=== PATIENT | female | born 1960 | race Caucasian/White ===

== ENCOUNTER 2020-05-14 08:40 | Outpatient (CLI) | payer OTHER, SELFPAY ==
--- NOTE | 2020-05-14 08:44 | CT_ITS ---
WS: [id number] CT NECK TECHNIQUE: Contrast-enhanced CT of the neck with coronal and sagittal reformatted images. CLINICAL INFORMATION: RIGHT CERVICAL LYMPHADENOPATHY COMPARISON: None. DLP: 622.[address] scans at [facility] use at least one of these dose optimization techniques: automat ed exposure control; mA and/or kV adjustment per patient size (includes targeted exams where dose is matched to clinical indication); or iterative reconstruction. FINDINGS: Parotid glands are normal. Normal submandibular glands. Normal parapharyngeal fat. Tongue base is nor mal in appearance. No evidence of supraglottic or glottic mass. Normal vallecula and piriform sinuses . Normal thyroid gland. In the area of concern, right lower neck, normal underlying sternocleidomastoid. No evidence of under lying neck mass or fluid collection. Lung apices are well aerated. No cervical lymphadenopathy. CT/CT neck w con* [id number] IMPRESSION: 1. No pathologic mass or lesion in the underlying neck soft tissues right lowe r neck in the area of concern. Normal underlying sternocleidomastoid. 2. No evidence of supraglottic or glottic mass. 3. No cervical lymphadenopathy.
[2020-05-14 09:31] LABS: Blood Urea Nitrogen 12 mg/dL (8-23); Glomerular Filtration Rate 85.4 mL/min (90-130)
[2020-05-14] MEDS: iodixanol 320 mg/mL 100mL Btl IV ×2 (09:40→09:56)
== END 2020-05-14 08:41 | disposition home or self-care (01) ==
PROVIDERS: Family Provider Family Medicine; PCP Family Medicine; Visit Provider Family Medicine
DX: R59.1 Generalized enlarged lymph nodes (principal)
CPT/HCPCS: 36415; 70491; 82565; 84520

== ENCOUNTER → 2020-07-23 15:41 | Outpatient (BNVA) | payer OTHER, SELFPAY | PROVIDERS: Family Provider Family Medicine; PCP Family Medicine; Visit Provider Family Medicine | DX: Z11.59 Encounter for screening for other viral diseases (principal) | CPT/HCPCS: 87635 ==

== ENCOUNTER 2021-08-26 12:02 | Outpatient (CLI) | payer OTHER, SELFPAY ==
--- NOTE | 2021-08-26 12:10 | MM_ITS ---
WS: [id number] BILATERAL SCREENING DIGITAL MAMMOGRAM WITH CAD HISTORY: SCREENING COMPARISON: 08/31/2019 and 05/03/2018 Bilateral CC and MLO views submitted. Computer aided detection analyzed. Breast composition: There are scattered areas of fibroglandular density. No suspicious masses, microc alcifications or architectural distortion. Benign calcification LEFT breast. MM/[place] [id number] IMPRESSION: BI-RADS: 2-Benign FOLLOW UP: 1 Year Follow-up
== END 2021-08-26 12:03 | disposition home or self-care (01) ==
PROVIDERS: PCP Family Medicine; Visit Provider Family Medicine
DX: Z12.31 Encounter for screening mammogram for malignant neoplasm of breast (principal)
CPT/HCPCS: 77067

== ENCOUNTER 2021-11-26 01:45 | Emergency (ER) | payer OTHER, SELFPAY ==
[2021-11-26 01:50] VITALS: BP 158/74; PULSE 83; RESP 18; TEMP 36.9; O2SAT 97; BMI 36.1
--- NOTE | 2021-11-26 01:54 | XRR_ITS ---
PROCEDURE INFORMATION: Exam: XR Left Wrist Exam date and time: 11/26/2021 1:54 AM Age: 60 years old Clinical indication: Injury or trauma; Fall; Blunt trauma (contusions or hematomas); Wrist; Left; Additional info: Injury, fall TECHNIQUE: Imaging protocol: XR Left wrist. Views: 3 or more views. COMPARISON: No relevant prior studies available. FINDINGS: Bones/joints: No fracture or dislocation is seen. Soft tissues: Soft tissue swelling displaces the pronator quadratus fat pad. XR/XR wrist LT min 3V* [id number] IMPRESSION: No fracture or dislocation. Displacement of the pronator quadratus fat pad is noted. Consider CT or MRI of the left wrist.
--- NOTE | 2021-11-26 01:54 | XRR_ITS ---
PROCEDURE INFORMATION: Exam: XR Right Wrist Exam date and time: 11/26/2021 1:54 AM Age: 60 years old Clinical indication: Injury or trauma; Fall; Blunt trauma (contusions or hematomas); Wrist; Right; Additional info: Injury, fall TECHNIQUE: Imaging protocol: XR Right wrist. Views: 3 or more views. COMPARISON: No relevant prior studies available. FINDINGS: Mild degenerative changes are present at the radiocarpal and distal radioulnar joints. No fracture or dislocation is visualized XR/XR wrist RT min 3V* [id number] IMPRESSION: No fracture or dislocation.
--- NOTE | 2021-11-26 01:54 | CTR_ITS ---
PROCEDURE INFORMATION: Exam: CT Head Without Contrast Exam date and time: 11/26/2021 1:54 AM Age: 60 years old Clinical indication: Injury or trauma; Fall; Blunt trauma (contusions or hematomas) and laceration; Without loss of consciousness; Without residual foreign body; Forehead; Additional info: Head injury TECHNIQUE: Imaging protocol: Computed tomography of the head without contrast. Radiation optimization: All CT scans at this facility use at least one of these dose optimization techniques: automated exposure control; mA and/or kV adjustment per patient size (includes targeted exams where dose is matched to clinical indication); or iterative reconstruction. COMPARISON: CT neck w con* [id number] 05/14/2020 9:46 AM RADIATION DOSE METRICS: Total DLP (mGy-cm): 807.68 FINDINGS: Brain: Normal. No hemorrhage. Unremarkable white matter. No mass effect. Cerebral ventricles: No ventriculomegaly. Paranasal sinuses: Visualized sinuses are unremarkable. No fluid levels. Mastoid air cells: Visualized mastoid air cells are well aerated. Bones/joints: Unremarkable. No acute fracture. Soft tissues: Mild soft tissue swelling is present in the left periorbital and forehead regions. CT/CT head wo con* [id number] IMPRESSION: No acute intracranial abnormality.
--- NOTE | 2021-11-26 01:55 | ED_ITS ---
HPI - Head Injury General: Chief complaint: Fall Stated complaint: Fall with head lac Time Seen by Provider: 11/26/21 01:53 History of Present Illness: 60-year-old female comes in today with injury sustained to the left forehead and bilateral wrist. Patient reports that she was letting the dog outside when she accidentally slipped and fell out the front door striking her head against a concrete wall. Patient also reports catching herself with outstretched arms. Patient reports bilateral wrist pain. Patient denies any loss of consciousness. Patient does not take routine anticoagulants or antiplatelet agents. Patient does have a history of coronary artery disease. Review of Systems General: Reports: 10 or more systems reviewed and unremarkable except in HPI and below Musc: Reports: joint pain (Bilateral wrist) Skin/Breast: Reports: other (Laceration right forehead) Neuro: Reports: other (Head injury) [facility] ED PFSH: Medical History (Updated 11/26/21 @ 02:41 by MYKE Lopez) ASHD (arteriosclerotic heart disease) Dyslipidemia HTN (hypertension) Surgical History S/P PTCA (percutaneous transluminal coronary angioplasty) Family History Father , AGE 80 Stroke Mother CAD (coronary artery disease) S/P PTCA (percutaneous transluminal coronary angioplasty) Myocardial infarction Brother CAD (coronary artery disease) S/P PTCA (percutaneous transluminal coronary angioplasty) Myocardial infarction Social History Smoking and tobacco status: never smoked Alcohol intake: never Household members: spouse Marital status: service: No Current occupational status: employed Physical Exam Const: COMMON NORMALS: patient oriented x3 and alert HENMT: HEAD & SCALP: abrasion and laceration (Central forehead and left forehead); no palpable skull fracture NOSE: no Epistaxis present THROAT: posterior oropharynx normal Neck/C-Spine: COMMON NORMALS: full ROM CERVICAL SPINE: No Cervical spine tenderness Resp: COMMON NORMALS: normal respiratory effort and clear to auscultation bilaterally AUSCULTATION: clear to auscultation bilaterally Cardio: COMMON NORMALS: regular rate and regular rhythm RATE: regular rate RHYTHM: regular rhythm GI: COMMON NORMALS: non-tender Extremity: RIGHT UPPER EXTREMITY: Yes wrist (Tenderness noted to the medial radius, reduced range of motion) Right wrist: Yes inspection, Yes palpation, Yes ROM and Yes neurovascular exam LEFT UPPER EXTREMITY: Yes wrist (Mild te nderness, normal range of motion) Left wrist: Yes inspection, Yes palpation, Yes ROM and Yes neurovascular exam Neuro: COMMON NORMALS: patient oriented x3 SENSORIUM/ORIENTATION: Yes alert Course Vital Signs: Vital signs: Vital Signs Temperature 98.5 F 11/26/21 01:50 Pulse Rate 83 11/26/21 01:50 Respiratory Rate 18 11/26/21 01:50 Blood Pressure 158/74 11/26/21 01:50 Pulse Oximetry 97 11/26/21 01:50 MDM - Head Injury Medcial Decision Making 60-year-old female comes in today with injury to the forehead and bilateral wrists secondary of fall. On exam patient has tenderness to bilateral wrists with reduced range of motion to the right wrist due to increased pain. Patient has 2 lacerations to the forehead. First laceration is central forehead it is V-shaped and approximately 4 cm, second laceration is 2 cm to the right forehead. No skull depression is noted on palpation. Pupils are equal and reactive. No focal neural deficits are noted. Patient is alert and oriented. Differential diagnosis includes laceration, fracture, wrist sprain. Lacerations were repaired with sutures, patient tolerated well. Head CT noted no intracranial bleeding or skull fracture. Right wrist radiology did not see any obvious sign of fracture, although there is suspicion for a medial radial int erarticular joint fracture noted on the x-ray which was reviewed by myself and Dr. Lipscomb. Left wrist no obvious fractures were noted, radiology did suggest further imaging due to a displacement of the fat pad. Wrist were both splinted with elastic bandage support. Case management was requested to follow-up with orthopedics for repeat evaluation of wrist injuries to rule out fracture or further treatment. Patient was agreeable to plan. Recommended follow-up with primary care in 3 days for recheck. Lab Data Radiology Impressions Head CT 11/26/21 01:54 IMPRESSION: No acute intracranial abnormality. Wrist X-Ray 11/26/21 01:54 IMPRESSION: No fracture or dislocation. Discharge Plan Discharge Patient Disposition: Home Clinical Impression: Abnormal finding on imaging Fall Qualifiers: Encounter type: initial encounter Qualified Code(s): W19.XXXA - Unspecified fall, initial encounter Distal radial fracture Qualifiers: Encounter type: initial encounter Fracture type: closed Fracture morphology: unspecified fracture morphology Laterality: right Qualified Code(s): S52.501A - Unspecified fracture of the lower end of right radius, initial encounter for closed fracture Forehead laceration Qualifiers: Encounter type: initial encounter Qualified Code(s): S01.81XA - Laceration without foreign body of other part of head, initial encounter Head injury Qualifiers: Encounter type: initial encounter Qualified Code(s): S09.90XA - Unspecified injury of head, initial encounter Condition: Stable Prescriptions: No Action nitroglycerin [Nitrostat] 0.4 mg tablet, sublingual 0.4 mg SUBLINGUAL Q5M PRN0RF metoprolol succinate 25 mg tablet extended release 24 hr 25 mg PO DAILY 0RF aspirin [Aspir-81] 81 mg tablet,delayed release (DR/EC) 81 mg PO DAILY 0RF clopidogrel 75 mg tablet 75 mg PO DAILY 0RF lisinopril 20 mg tablet 20 mg PO DAILY 0RF escitalopram oxalate 10 mg tablet 10 mg PO DAILY 0RF atorvastatin 80 mg tablet 80 mg PO DAILY 0RF Discharge Orders: Discharge ED (Routine); Ordered 11/26/21 Ordered By: Lm Null Referrals: Tanna Wayne DO [Primary Care Provider] - Discharge Diet: Usual diet Discharge Activity: Increase activity as tolerated Patient Instructions: Head Injury (ED), Splint Care (ED), Head Laceration (ED) Activity Restrictions/Additional Instructions: Activity as tolerated. Keep wounds clean and dry for 48 hours. Use acetaminophen and ibuprofen for pain. Follow-up with orthopedist for further evaluation of bilateral wrist. Radiology noted some abnormality on the left wrist, but no definite fracture was noted. The same was said about the right wrist. Head CT did not show any intracranial bleeding or fractures. Follow-up with primary care in 3 days for recheck. Return to ER for new concerns, severe headache, or persistent nausea and vomiting. Coding Level of Care Code ED Organic Extractions Technician for Maryellen Valderrama
[2021-11-26] MEDS: acetaminophen 500 mg Tablet 1000 MG PO (03:01)
[2021-11-26] MEDS: lidocaine 1% INJ 20 mL INJECTION (03:01)
--- NOTE | 2021-11-26 08:25 | DCPLANNER ---
follow up manager had message to schedule a follow up appointment for patient with ortho. follow up manager called the ortho clinic, spoke with Veroniqeu, gave clinic patients information. follow up manager was told that patients information would be printed and reviewed. Clinic will call patient with appointment information.
--- NOTE | 2021-11-26 08:29 | DCPLANNER ---
Addendum entered by Nely Fierro 11/28/21 19:42: Patient had a follow up appointment scheduled for 11.27.[address] Hwang at ortho - patient did attend appointment. Original Note: transport company manager had message to schedule a follow up appointment for patient with ortho. transport company manager called the ortho clinic, spoke with Mili, gave clinic patients information. transport company manager was told that patients information would be printed and reviewed. Clinic will call patient with appointment information.
== END 2021-11-26 03:00 | disposition home or self-care (01) ==
PROVIDERS: Emergency Provider Nurse Practitioner Family; PCP Family Medicine
DX: S01.81XA Laceration without foreign body of other part of head, initial encounter (principal); S09.90XA Unspecified injury of head, initial encounter; S52.501A Unspecified fracture of the lower end of right radius, initial encounter for closed fracture; R93.6 Abnormal findings on diagnostic imaging of limbs; Z79.82 Long term (current) use of aspirin; Z79.02 Long term (current) use of antithrombotics/antiplatelets; E78.5 Hyperlipidemia, unspecified; I10 Essential (primary) hypertension; W01.198A Fall on same level from slipping, tripping and stumbling with subsequent striking against other object, initial encounter
CPT/HCPCS: 12014; 29260; 70450; 73110; 99282

== ENCOUNTER → 2021-11-27 10:59 | Outpatient (BNVA) | payer OTHER, SELFPAY | PROVIDERS: PCP Family Medicine; Referring Provider Nurse Practitioner Family; Visit Provider Specialist | DX: S52.501A Unspecified fracture of the lower end of right radius, initial encounter for closed fracture (principal); X58.XXXA Exposure to other specified factors, initial encounter | CPT/HCPCS: 73110 ==

== ENCOUNTER 2021-11-27 12:29 | Outpatient (CLI) | payer OTHER, SELFPAY | END 2021-11-27 12:30 | disposition home or self-care (01) | LOC: SPT 12:30 | PROVIDERS: PCP Family Medicine; Visit Provider Specialist | DX: Z46.89 Encounter for fitting and adjustment of other specified devices (principal); S52.591D Other fractures of lower end of right radius, subsequent encounter for closed fracture with routine healing; X58.XXXD Exposure to other specified factors, subsequent encounter; M25.532 Pain in left wrist | CPT/HCPCS: 97760; L3908; L3982 ==

== ENCOUNTER → 2021-12-23 14:33 | Outpatient (BNVA) | payer OTHER, SELFPAY | PROVIDERS: PCP Family Medicine; Visit Provider Specialist | DX: S52.509A Unspecified fracture of the lower end of unspecified radius, initial encounter for closed fracture (principal); X58.XXXA Exposure to other specified factors, initial encounter | CPT/HCPCS: 73110 ==

== ENCOUNTER 2022-01-06 12:00 | Outpatient (RCR) | payer OTHER, SELFPAY | END 2022-02-01 23:59 | disposition home or self-care (01) | LOC: SPT 12:00 | PROVIDERS: PCP Family Medicine; Referring Provider Specialist; Visit Provider Specialist | DX: S52.501D Unspecified fracture of the lower end of right radius, subsequent encounter for closed fracture with routine healing (principal); X58.XXXD Exposure to other specified factors, subsequent encounter | CPT/HCPCS: 97110; 97161; 97530 ==

== ENCOUNTER → 2022-01-22 08:49 | Outpatient (BNVA) | payer OTHER, SELFPAY | PROVIDERS: PCP Family Medicine; Visit Provider Specialist | DX: S52.501A Unspecified fracture of the lower end of right radius, initial encounter for closed fracture (principal); X58.XXXA Exposure to other specified factors, initial encounter | CPT/HCPCS: 73110 ==

== ENCOUNTER → 2022-04-28 08:16 | Outpatient (BNVA) | payer OTHER, SELFPAY | PROVIDERS: PCP Family Medicine; Visit Provider Specialist | DX: S63.502A Unspecified sprain of left wrist, initial encounter (principal); X58.XXXA Exposure to other specified factors, initial encounter; M25.532 Pain in left wrist | CPT/HCPCS: 73110 ==

== ENCOUNTER 2022-05-13 10:59 | Outpatient (RCR) | payer OTHER, SELFPAY | END 2022-06-04 23:59 | disposition home or self-care (01) | LOC: SOT 10:59 | PROVIDERS: PCP Family Medicine; Referring Provider Specialist; Visit Provider Specialist | DX: S52.501D Unspecified fracture of the lower end of right radius, subsequent encounter for closed fracture with routine healing (principal); X58.XXXD Exposure to other specified factors, subsequent encounter | CPT/HCPCS: 97022; 97110; 97140; 97165 ==

== ENCOUNTER 2025-08-28 11:21 | Outpatient (CLI) | payer OTHER, SELFPAY ==
--- NOTE | 2025-08-28 11:20 | MM_ITS ---
WS: [id number] BILATERAL SCREENING DIGITAL TOMOSYNTHESIS MAMMOGRAM WITH CAD HISTORY: SCREENING COMPARISON: 08/26/2021, 08/31/2019, 05/03/2018 Bilateral CC and MLO views with tomosynthesis and synthetic mammography submitted. Computer aided detection analyzed. Breast composition: The breasts are heterogeneously dense, which may obscure small masses. No suspicious masses, microcalcifications or architectural distortion. Benign coarse calcification anterior LEFT breast. MM/MM scr tomosynthesis [id number] IMPRESSION: BI-RADS: 2 - Benign FOLLOW UP: 1 Year Follow-up
== END 2025-08-28 11:22 | disposition home or self-care (01) ==
LOC: MOBLMAM 11:25
PROVIDERS: PCP Nurse Practitioner Family; Visit Provider Nurse Practitioner Family
DX: Z12.31 Encounter for screening mammogram for malignant neoplasm of breast (principal); R92.333 Mammographic heterogeneous density, bilateral breasts; R92.1 Mammographic calcification found on diagnostic imaging of breast
CPT/HCPCS: 77063; 77067